=== PATIENT | female | born 1970 | race Caucasian/White ===

== ENCOUNTER 2016-10-01 02:20 | Emergency (ER) | payer BC ==
[2016-10-01] MEDS ORDERED: Ketorolac INJ* 60 MG/2 ML VIAL IM ONE (02:33)
--- NOTE | 2016-10-01 02:43 | ED ---
Rashmi Huston Anna, scribed for Axel Simmons MD on 10/01/16 at 0223 . Back Pain - HPI Summary HPI Summary: Patient is a 46 y/o female coming to [facility] presenting with constant, right lower back pain that began at 1600 yesterday. She describes the severity of the pain as 7/10. The pain is exacerbated by sitting. She additionally reports numbness in her right leg. She tried ibuprofen, ice, and heat DOOR FRAMER, but these did not alleviate the symptoms. Her history is significant for HNP and sciatica. - History of Current Complaint Stated Complaint: BACK PAIN Hx Obtained From: Patient Onset/Duration: Lasting Hours, Still Present Timing: Constant Pain Intensity: 7 Pain Scale Used: 0-10 Numeric - Allergies/Home Medications Allergies/Adverse Reactions: Allergies Allergy/AdvReac Type Severity Reaction Status Date / Time Hydrocodone AdvReac Mild Itching Verified 10/01/16 02:27 Oxycodone AdvReac Mild Itching Verified 10/01/16 02:27 PMH/Surg Hx/FS Hx/Imm Hx Endocrine/Hematology History: Reports: Hx Thyroid Disease - Hypothyroidism Musculoskeletal History: Reports: Other Musculoskeletal History - HNP, sciatica - Family History Known Family History: Positive: Hypertension, Diabetes, Other - hypothyroidism - Social History Lives: With Family Alcohol Use: Occasionally Alcohol Amount: 2-3/week Hx Substance Use: No Substance Use Type: Reports: None Hx Tobacco Use: No Smoking Status (MU): Never Smoked Tobacco Review of Systems Positive: Myalgia Positive: Numbness All Other Systems Reviewed And Are Negative: Yes Physical Exam Triage Information Reviewed: Yes Vital Signs On Initial Exam: Initial Vitals Temp Pulse Resp BP Pulse Ox 98.3 F 60 16 154/80 100 10/01/16 02:22 10/01/16 02:22 10/01/16 02:22 10/01/16 02:22 10/01/16 02:22 Vital Signs Reviewed: Yes Appearance: Positive: Well-Appearing, Pain Distress - mild discomfort Skin: Positive: Warm Eyes: Positive: NEPTALI ENT: Positive: Hearing grossly normal Neck: Positive: Supple Respiratory/Lung Sounds: Positive: Breath Sounds Present Cardiovascular: Positive: RRR Abdomen Description: Positive: Nontender, Soft Bowel Sounds: Positive: Present Musculoskeletal: Positive: Strength/ROM Intact, Other - mild rt lower lumbar spasm Neurological: Positive: Sensory/Motor Intact, Alert, Oriented to Person Place, Time, Normal Gait Psychiatric: Positive: Affect/Mood Appropriate Diagnostics - Vital Signs Vital Signs Temp Pulse Resp BP Pulse Ox 10/01/16 02:31 64 99 10/01/16 02:30 109/81 10/01/16 02:22 98.3 F 60 16 154/80 100 - Laboratory Lab Statement: Any lab studies that have been ordered have been reviewed, and results considered in the medical decision making process. Re-Evaluation - Re-Evaluation First Eval Change: Improved Back Pain Course/Dx - Course Assessment/Plan: Patient is a 46 y/o female coming to [facility] presenting with constant, right lower back pain that began at 1600 yesterday. She describes the severity of the pain as 7/10. The pain is exacerbated by sitting. She additionally reports numbness in her right leg. She tried ibuprofen, ice, and heat DOOR FRAMER, but these did not alleviate the symptoms. Her history is significant for HNP and sciatica. Patient was given Toradol in the ED. She will be discharged home with a prescription for cyclobenzaprine. - Diagnoses Provider Diagnoses: Back pain Discharge - Discharge Plan Condition: Stable Disposition: HOME Prescriptions: Cyclobenzaprine TAB* [Flexeril TAB*] 10 mg PO TID #20 tab Patient Education Materials: Cyclobenzaprine (By mouth), Back Pain (ED) Referrals: Joanne Davila CNM [Primary Care Provider] - Additional Instructions: Follow up with primary care physician within 48 hours. Return to the emergency department for changing or worsening symptoms. The documentation as recorded by the Rashmi argueta Anna accurately reflects the service I personally performed and the decisions made by , Axel Simmons MD.
[2016-10-01] MEDS ORDERED: HYDROmorphone INJ* 1 MG/ML CARPUJECT SYRINGE IM ONE (03:38)
[2016-10-01 04:33] VITALS: BP 113/80
== END 2016-10-01 04:30 | disposition home or self-care (01) ==
LOC: ED 02:20
DX: M54.5 Low back pain (principal); Z88.5 Allergy status to narcotic agent; E03.9 Hypothyroidism, unspecified; M51.26 Other intervertebral disc displacement, lumbar region; M54.30 Sciatica, unspecified side
CPT/HCPCS: 96372; 99283; J1170; J1885